=== PATIENT | female | born 1975 | race Caucasian/White ===

== ENCOUNTER 2018-05-09 09:32 | Emergency (ER) | payer OTHER ==
[2018-05-09 09:38] VITALS: BP 149/79; PULSE 106; RESP 18; TEMP 98.2
--- NOTE | 2018-05-09 10:42 | ED ---
ENT HPI - General Chief complaint: ENT Stated complaint: FB in ear Time Seen by Provider: 05/09/18 09:44 Source: patient, RN notes reviewed Mode of arrival: ambulatory Limitations: no limitations - History of Present Illness Initial comments: 42-year-old female presents emergency from for discomfort at time. Denies any bleeding no drainage. foreign body in her right ear canal. She states 4 days ago nail broke off in her ear canal. Patient states that she was seen at [facility] and they were unable to do anything for her so they referred to ENT. ENT stated that they do not accept her insurance. Patient states that she - Related Data Home Medications Medication Instructions Recorded Confirmed Omeprazole [PriLOSEC] 20 mg PO [id number] 05/09/18 05/09/18 Allergies Allergy/AdvReac Type Severity Reaction Status Date / Time No Known Allergies Allergy Verified 05/09/18 10:25 Review of Systems ROS Statement: Those systems with pertinent positive or pertinent negative responses have been documented in the HPI. ROS Other: All systems not noted in ROS Statement are negative. Past Medical History Past Medical History: GERD/Reflux History of Any Multi-Drug Resistant Organisms: None Reported Past Surgical History: Tubal Ligation Past Psychological History: No Psychological Hx Reported Smoking Status: Current every day smoker Past Alcohol Use History: Occasional Past Drug Use History: Marijuana General Exam Limitations: no limitations General appearance: alert, in no apparent distress Head exam: Present: atraumatic, normocephalic, normal inspection Eye exam: Present: normal appearance, PERRL, EOMI. Absent: scleral icterus, conjunctival injection, periorbital swelling ENT exam: Present: normal oropharynx, mucous membranes moist, TM's normal bilaterally. Absent: normal exam, normal external ear exam (Foreign body noted in the right EAC) Neck exam: Present: normal inspection, full ROM. Absent: tenderness, meningismus, lymphadenopathy Respiratory exam: Present: normal lung sounds bilaterally. Absent: respiratory distress, wheezes, rales, rhonchi, stridor Cardiovascular Exam: Present: regular rate, normal rhythm, normal heart sounds. Absent: systolic murmur, diastolic murmur, rubs, gallop, clicks Course Vital Signs 05/09/18 09:34 Temperature 98.2 F Pulse Rate 106 H Respiratory 18 Rate Blood Pressure 149/79 O2 Sat by Pulse 100 Oximetry Procedures - Foreign Body Removal Ear Location: ear canal (R) Foreign Body Suspected: other (fake nail) If Insect Suspected: ear canal inspected; intact TM, insect seen Foreign Body Removed: yes Foreign Body Removal Technique: instrumentation Tympanic Membrane Intact: Yes Patient Tolerated Procedure: well Complications: none Medical Decision Making - Medical Decision Making 6-year-old female presented for foreign body right EAC. This was removed after irrigation with instrumentation. Patient tolerated well no complications. Disposition Clinical Impression: Foreign body in ear Disposition: HOME SELF-CARE Condition: Stable Instructions (If sedation given, give patient instructions): Ear Foreign Body ( ED) Additional Instructions: Please return to the Emergency Department if symptoms worsen or any other concerns. Is patient prescribed a controlled substance at d/c from ED?: No Referrals: Charly Stover MD [Primary Care Provider] - 1-2 days Time of Disposition: 10:42
== END 2018-05-09 11:15 | disposition home or self-care (01) ==
LOC: EC 09:32
DX: T16.1XXA Foreign body in right ear, initial encounter (principal); K21.9 Gastro-esophageal reflux disease without esophagitis; F17.200 Nicotine dependence, unspecified, uncomplicated; Z98.51 Tubal ligation status; Z79.899 Other long term (current) drug therapy; X58.XXXA Exposure to other specified factors, initial encounter
CPT/HCPCS: 69200; 99282